=== PATIENT | male | born 1955 | race Caucasian/White ===

== ENCOUNTER → 2016-05-12 | Outpatient (CLI) | payer OTHER, MEDICAID ==
--- NOTE | 2016-05-15 08:40 | MRI ---
HISTORY: Degenerative joint disease Study: MRI of the lumbar spine Comparison: None Technique: Multiplanar multi-sequence MRI of the lumbar spine was obtained. Sagittal T1, sagittal T 2, and stir weighted images, axial T1, and axial T2 images were obtained. Findings: The lumbar vertebral body heights are relatively maintained. No evidence of acute displaced fracture or significant subluxation is identified. Scattered foci increased T1 and T2 signal within the visu alized spine suggest focal fat or perhaps. The conus medullaris terminates at approximately L1. L1 -- L2: Slight posterior disc bulge and facet arthropathy without evidence of significant central canal or neuroforaminal stenosis. L2 -- L3: Slight posterior disc bulge and facet arthropathy without evidence of significant central canal or neuroforaminal stenosis. L3 -- L4: Broad-based posterior disc bulge and facet arthropathy resulting in mild to moderate left neuroforaminal stenosis. No significant central canal or right neuroforaminal stenosis is appreciate d. L4 -- L5: Circumferential disc bulge and facet arthropathy resulting in mild central canal and moder ate bilateral neuroforaminal stenosis. L5 -- S1: Posterior disc bulge and facet arthropathy resulting in mild left neuroforaminal stenosis. No significant central canal or right neuroforaminal stenosis is appreciated. IMPRESSION: Multilevel degenerative changes as noted above. Reported By:
== END ==
LOC: RAD 10:27
PROVIDERS: ATTEND Orthopaedic Surgery
DX: M51.36 Other intervertebral disc degeneration, lumbar region (principal)
CPT/HCPCS: 72148

== ENCOUNTER 2016-05-31 10:43 | Day surgery (SDC) | payer OTHER, MEDICAID ==
[2016-05-31 11:07] VITALS: BP 156/91
[2016-05-31] MEDS ORDERED: KENALOG INJ 40 MG ONE (11:12)
[2016-05-31] MEDS ORDERED: MARCAINE 0.25% WITH EPI IJ ONE (11:12)
[2016-05-31] MEDS ORDERED: XYLOCAINE 2 % (PLAIN) ONE (11:12)
--- NOTE | 2016-05-31 11:22 | DR.UPDATE ---
H&P Update History and Physical Update: History and Physical reviewed and patient examined. Changes noted: NO Yes with the following: Agree with Dr Mcgowan's H&p. will perform interlaminar kg L4-5 left sided.
== END 2016-05-31 11:52 | disposition home or self-care (01) | DRG 552 ==
LOC: SURG1 10:43
PROVIDERS: ATTEND Orthopaedic Surgery
PROC: 3E0R3BZ Introduction of Anesthetic Agent into Spinal Canal, Percutaneous Approach (ICD-10-PCS; principal; 2016-05-31 11:00)
PROC: 3E0R33Z Introduction of Anti-inflammatory into Spinal Canal, Percutaneous Approach (ICD-10-PCS; principal; 2016-05-31 11:00)
PROC: B01BZZZ Fluoroscopy of Spinal Cord (ICD-10-PCS; principal; 2016-05-31 11:00)
DX: M51.36 Other intervertebral disc degeneration, lumbar region (principal)
CPT/HCPCS: 62323; 76000; A4222; S0020; J2001; J3301